=== PATIENT | male | born 1970 | race Native Hawaiian/Other Pacific Islander ===

== ENCOUNTER 2021-03-18 04:53 | Emergency (ER) | payer SELFPAY ==
[2021-03-18 05:12] VITALS: BP 151/100
== END 2021-03-18 06:45 | disposition left against medical advice (07) ==
LOC: ED 04:53
DX: M79.602 Pain in left arm (principal); Z53.21 Procedure and treatment not carried out due to patient leaving prior to being seen by health care provider